=== PATIENT | female | born 1995 | race Caucasian/White ===

== ENCOUNTER 2019-04-26 14:41 | Emergency (ER) | payer MEDICAID, OTHER ==
[~2019-04-26] VITALS: Ht 154.9 cm; Wt 55.3 kg
[2019-04-26 14:50] VITALS: BP 129/87
--- NOTE | 2019-04-26 16:27 | NUR ---
PT PRESENTED TO ED, C/O RIGHT KNEE PAIN, STATED "I DISLOCATED MY KNEE THIS MORNING", PER PT THIS IS THE FOUTH TIME SHE DISLOCATED HER RIGHT KNEE. C/O 5/10 PAIN, RIGHT KNEE WITH KNEE BRACE IN PLACE, UNABLE TO BEND AT THIS TIME, NO SWELLING NOTED, TOOK IBUPROFEN FOR PAIN. PEDAL PULSE PRESENT. AAOX4, RR EVEN UNLABORED, IN NO DISTRESS, ED MD DR. CAICEDO MADE AWARE. WILL CONTINUE TO MONITOR CLOSELY.
[2019-04-26 17:03] VITALS: BP 125/84
== END 2019-04-26 16:54 | disposition home or self-care (01) ==
LOC: MED 14:41
DX: S83.91XA Sprain of unspecified site of right knee, initial encounter (principal); Z87.442 Personal history of urinary calculi; X58.XXXA Exposure to other specified factors, initial encounter; Y93.89 Activity, other specified; Y92.89 Other specified places as the place of occurrence of the external cause; Y99.8 Other external cause status
CPT/HCPCS: 29505; 73562; 99283; Q0092

== ENCOUNTER 2019-11-27 00:47 | Emergency (ER) | payer OTHER ==
[~2019-11-27] VITALS: Ht 154.9 cm; Wt 53.6 kg
[2019-11-27 00:54] VITALS: BP 125/77
--- NOTE | 2019-11-27 00:55 | NUR ---
PT AMBLUATED TO BED 2 WITH STEADY GAIT.
--- NOTE | 2019-11-27 01:00 | NUR ---
PT 24 Y/O FEMALE BIB SELF FOR C/O L FLANK PAIN 9/10 SHARP AND RADIATING TO L SIDE. PT STATES PAIN BEGAN X 2 HOURS AGO. PT STATES SHE HAS A HX OF KIDNEY STONES 5 YEARS AGO AND "IT FEELS LIKE THE SAME PAIN I HAD BACK THEN." PT STATES SHE HAD PAINFUL URINATION A FEW DAYS AGO BUT NOT CURRENTLY. "IT FELT LIKE I WAS PEING SHARDS OF GLASS, BUT NOW IT FEELS OKAY." PT ALSO HAS C/O NAUSEA. BEFORE ARRIVAL TO ER PT VOMITED. PT HAS HAD NO OTHER EPISODE OF VOMITING UPON ARRIVAL TO ER. ABD IS SOFT, ROUND, AND NON TENDER. BS PRESENT X 4. AFEBRILE. RESPIRATIONS ARE EVEN AND UNLABORED. VSS. PT RESTING IN BED EYES CLOSED. BED LOCKED AND IN LOWEST POSITION. MEDHX: KIDNEY STONES ALLERGIES: NKA
--- NOTE | 2019-11-27 01:15 | NUR ---
DR. RATLIFF AT BEDSIDE.
--- NOTE | 2019-11-27 01:22 | NUR ---
PT ATTEMPTED TO GIVE UA SAMPLE. PT UNABLE TO PRVIDE UA SAMPLE AT THIS TIME. PT ABLE TO AMBULATE TO BED 2 WITH STEADY GAIT.
[2019-11-27] MEDS ORDERED: NACL 0.9% 1,000 ML IV ONE (01:50)
[2019-11-27] MEDS ORDERED: KETOROLAC 30 MG/ML VIAL IVP ONE ×2 (01:50→06:45)
--- NOTE | 2019-11-27 02:00 | NUR ---
NEW IV SITE @ [facility] 20G. IV SITE IS PATENT. NO SWELLING OR C/O PAIN AT THIS TIME. LABS DRAWN AND COLLECTED. NS 0.9% 1L RUNNING CONTINOUSLY.
--- NOTE | 2019-11-27 02:05 | NUR ---
TORADOL 30MG IVP GIVEN FOR C/O 9 PAIN.
[2019-11-27 02:22] LABS: BASOPHILS # (AUTO) 0.1 K/uL (0.00-0.22); BASOPHILS % (AUTO) 0.5 % (0.0-2.0); EOSINOPHILS # (AUTO) 0.1 K/uL (0-0.4); EOSINOPHILS % (AUTO) 0.9 % (0.0-4.0); HEMATOCRIT 43.4 % (36-48); HEMOGLOBIN 14.6 g/dL (12.0-16.0); LYMPHOCYTES # (AUTO) 2.2 K/uL (2.5-16.5); LYMPHOCYTES % (AUTO) 19.4 % (20.5-51.1); MEAN CORPUSCULAR HEMOGLOBIN 29 pg (27-31); MEAN CORPUSCULAR HGB CONC 34 g/dL (33-37); MEAN CORPUSCULAR VOLUME 85.2 fL (80-94); MONOCYTES # (AUTO) 0.6 K/uL (0.8-1.0); NEUTROPHILS # (AUTO) 8.3 K/uL (1.8-7.7); NEUTROPHILS % (AUTO) 74.2 % (42.2-75.2); PLATELET COUNT (AUTO) 244 K/uL (140-450); WHITE BLOOD COUNT (AUTO) 11.1 K/uL (4.8-10.8)
[2019-11-27 02:46] LABS: POTASSIUM 3.8 mmol/L (3.5-5.1)
[2019-11-27 02:47] LABS: ALBUMIN 4.2 g/dL (3.4-5.0); ANION GAP 10.4 (8-16); CARBON DIOXIDE 28.4 mmol/L (21-32); CREATININE 0.8 mg/dL (0.6-1.3); TOTAL BILIRUBIN 0.3 mg/dL (0.0-1.0)
--- NOTE | 2019-11-27 03:35 | NUR ---
PT STATES TORADOL TEMPORARILY HELPED WITH PAIN BUT PAIN RETURNED. PT STATES PAIN IS 9/[address] RATLIFF MADE AWARE AND GAVE NEW ORDER FOR MORPHINE 4MG IVP.
[2019-11-27] MEDS ORDERED: MORPHINE SULFATE 4 MG/ML SYR IVP ONE (03:40)
[2019-11-27 04:51] LABS: APPEARANCE,URINE CLOUDY (CLEAR); BILIRUBIN,URINE NEGATIVE (NEGATIVE); BLOOD, URINE 3+ (NEGATIVE); LEUKOCYTE ESTERASE ,URINE TRACE (NEGATIVE); NITRITE, URINE POSITIVE (NEGATIVE); PH,URINE 6.5 (5.0-9.0); UGLUCOSE NEGATIVE (NEGATIVE)
[2019-11-27 05:01] LABS: COLOR,URINE YELLOW (YELLOW)
[2019-11-27 05:02] LABS: RBC,URINE TOO NUMEROUS TO COUN /HPF (0-5)
[2019-11-27 05:03] LABS: CALCIUM OXALATE CRYSTALS,UR 0-2 /HPF (None Seen)
--- NOTE | 2019-11-27 05:12 | NUR ---
PT TAKEN TO CT VIA W/C. PT ABLE TO AMBULATE TO W/C WITH STEADY GAIT.
--- NOTE | 2019-11-27 05:30 | NUR ---
PT RETURNED FROM CT. PT RESTING IN BED EYES OPEN. RESPIRATIONS ARE EVEN AND UNLABORED. SKIN IS WARM AND DRY TO TOUCH.
--- NOTE | 2019-11-27 06:30 | NUR ---
PT HAD C/O 8/[address] RATLIFF MADE AWARE AND GAVE ORDER FOR TORADOL 30MG IVP.
[2019-11-27] MEDS ORDERED: KETOROLAC 30 MG/ML VIAL ONE (06:45)
[2019-11-27 06:50] VITALS: BP 117/73
--- NOTE | 2019-11-27 06:50 | NUR ---
Patient discharged with v/s stable. Written and verbal after care instructions given and explained. Patient verbalized understanding. Carried with steady gait. All questions addressed prior to discharge. Advised to follow up with PMD.
--- NOTE | 2019-11-30 08:17 | NUR ---
LATE ENTRY--SPOKE WITH PATIENT. PT VERBALZIED UNDERSTANDING OF POSITIVE URINE CULTURE. CALL TO [facility] -- RX CALLED IN FOR CIPRO 500MG, SPOKE WITH BILL.
== END 2019-11-27 06:50 | disposition home or self-care (01) ==
LOC: MED 00:47
DX: N20.0 Calculus of kidney (principal); R11.2 Nausea with vomiting, unspecified
CPT/HCPCS: 36415; 74176; 80053; 81001; 81025; 82150; 83690; 84703; 85025; 87086; 87186; 96361; 96374; 96375; 96376; 99284; J1885; J2270; J7030